=== PATIENT | female | born 1975 | race Caucasian/White ===

== ENCOUNTER 2018-08-28 13:43 | Emergency (ER) | payer MEDICAID ==
--- NOTE | 2018-08-28 14:06 | EDM.PDOC ---
ED HPI GENERAL MEDICAL PROBLEM - General Chief Complaint: Abdominal Pain Stated Complaint: SEVERE ABDOMINAL PAIN,HEADACHE Time Seen by Provider: 08/28/18 14:03 - History of Present Illness INITIAL COMMENTS - FREE TEXT/NARRATIVE: 42-year-old female presents emergency room with abdominal pain. This abdominal pain started about 5 days ago it is right lower abdomen may start in her flank. She has no appetite no significant nausea but some no vomiting she was constipated up to a few days ago but this resolved on its own. Patient is had frequent problems with urinary tract infections but nothing with flank pain. The patient's headache she noticed this morning that is fairly mild. 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 Right Abdomen Pain Score (Numeric/FACES): 8 - Related Data Allergies Allergy/AdvReac Type Severity Reaction Status Date / Time amoxicillin Allergy Anaphylactic Verified 08/28/18 13:56 Shock morphine Allergy Seizure Verified 08/28/18 13:56 Home Meds: Home Meds Acetaminophen/HYDROcodone [[place] 325-5 MG] 1 - 2 tab PO Q6H PRN #12 tablet 08/28 [Rx] Acetaminophen/HYDROcodone [[place] 325-5 MG] 1 tab PO BID PRN 08/28/18 [History] Aspirin [Halfprin] 81 mg PO DAILY 08/28/18 [History] Carisoprodol 350 mg PO DAILY 08/28/18 [History] Cyclobenzaprine [Flexeril] 10 mg PO TID PRN 08/28/18 [History] Diazepam [Valium] 5 mg PO TID PRN 08/28/18 [History] Ergocalciferol (Vitamin D2) [Vitamin D2] 50,000 unit PO WEEKLY 08/28/18 [History ] FLUoxetine HCl [Prozac] 20 mg PO DAILY 08/28/18 [History] Ferrous Sulfate 325 mg PO BID 08/28/18 [History] Ibuprofen 800 mg PO Q8H PRN 08/28/18 [History] Meloxicam 7.5 mg PO DAILY 08/28/18 [History] Ondansetron [Zofran Odt] 8 mg PO Q6H PRN #12 tab.rapdis 08/28/18 [Rx] Oxybutynin [Oxybutynin ER] 5 mg PO BID 08/28/18 [History] Pantoprazole Sodium [Protonix] 40 mg PO DAILY 08/28/18 [History] Prazosin HCl [Prazosin] 5 mg PO BEDTIME 08/28/18 [History] Spironolactone [Aldactone] 25 mg PO DAILY 08/28/18 [History] Tamsulosin HCl [Flomax] 1 cap PO DAILY 08/28/18 [History] Topiramate [Trokendi Xr] 200 mg PO DAILY 08/28/18 [History] atorvaSTATin [Lipitor] 40 mg PO BEDTIME 08/28/18 [History] ED ROS GENERAL - Review of Systems Review Of Systems: See Below Constitutional: Reports: No Symptoms. Denies: Fever, Chills HEENT: Reports: No Symptoms Respiratory: Reports: No Symptoms Cardiovascular: Reports: No Symptoms Endocrine: Reports: No Symptoms GI/Abdominal: Reports: Abdominal Pain, Anorexia, Constipation, Nausea. Denies: Diarrhea, Vomiting : Reports: Flank Pain. Denies: Discharge, Dysuria, Hematuria, Incontinence Musculoskeletal: Reports: No Symptoms Neurological: Reports: Headache Psychiatric: Reports: No Symptoms ED EXAM, GI/ABD - Physical Exam Exam: See Below Exam Limited By: No Limitations General Appearance: Alert, No Apparent Distress Head: Atraumatic, Normocephalic Neck: Normal Inspection, Supple, Non-Tender, Full Range of Motion. No: Lymphadenopathy (L), Lymphadenopathy (R) Respiratory/Chest: No Respiratory Distress, Lungs Clear, Normal Breath Sounds Cardiovascular: Normal Peripheral Pulses, Regular Rate, Rhythm, No Edema, No Murmur GI/Abdominal Exam: Normal Bowel Sounds, Soft, Other (The patient is significant right lower quadrant discomfort but it seems to be worsening suprapubic area pressing on the left side of her abdomen causes pain in the right lower quadrant and suprapubic area however she has no rigidity rebound or guarding the patient has significant obesity limits exam.) Back Exam: Normal Inspection, CVA Tenderness (R) (Patient has significant right CVA discomfort). No: CVA Tenderness (L) Extremities: Other (She is slow to move and has limited range of motion due to chronic pain issues she has a history of fibromyalgia this is nothing new for her.) Neurological: Alert, Oriented, Normal Cognition, Other (Cranial nerves II through XII grossly intact all muscle groups the upper lower extremities are equal and appropriate sometimes is a little slow to move things because of her chronic pain issues but does get the job done deep tendon reflexes are equal and appropriate the brachial radialis and patella tendons bilaterally cerebellar testing is normal cranial nerves II through XII are grossly intact.) Psychiatric: Normal Affect, Normal Mood Skin Exam: Warm, Dry, Intact Course - Vital Signs Last Recorded V/S: Last Vital Signs Temp 36.6 C 08/28/18 13:56 Pulse 92 08/28/18 13:56 Resp 16 08/28/18 13:56 BP 147/107 H 08/28/18 13:56 Pulse Ox 100 08/28/18 13:56 - Orders/Labs/Meds Orders: Active Orders 24 hr Category Date Time Status Abdomen Pelvis wo Cont [CT] Stat Exams 08/28/18 16:29 Taken Labs: Laboratory Tests 08/28/18 08/28/18 08/28/18 Range/Units 14:30 14:40 14:40 WBC 8.69 (3.98-10.04) K/mm3 RBC 4.50 (3.98-5.22) M/mm3 Hgb 13.2 (11.2-15.7) gm/L Hct 41.8 (34.1-44.9) % MCV 92.9 (79.4-94.8) fl MCH 29.3 (25.6-32.2) pg MCHC 31.6 L (32.2-35.5) g/dl RDW Std Deviation 48.2 H (36.4-46.3) fL Plt Count 191 (182-369) K/mm3 MPV 11.9 (9.4-12.3) fl Neutrophils % (Manual) 64 H (40-60) % Band Neutrophils % 2 (0-10) % Lymphocytes % (Manual) 26 (20-40) % Atypical Lymphs % 0 % Monocytes % (Manual) 7 (2-10) % Eosinophils % (Manual) 0 L (0.7-5.8) % Basophils % (Manual) 1 (0.1-1.2) Platelet Estimate Adequate RBC Morph Comment Normal Sodium 140 (136-145) mEq/L Potassium 4.0 (3.5-5.1) mEq/L Chloride 103 (98-107) mEq/L Carbon Dioxide 25 (21-32) mEq/L Anion Gap 16.0 H (5-15) BUN 17 (7-18) mg/dL Creatinine 0.9 (0.55-1.02) mg/dL Est Cr Clr Drug Dosing TNP Estimated GFR (MDRD) > 60 (>60) mL/min BUN/Creatinine Ratio 18.9 H (14-18) Glucose 95 (74-106) mg/dL Calcium 8.4 L (8.5-10.1) mg/dL Total Bilirubin 0.3 (0.2-1.0) mg/dL AST 18 (15-37) U/L ALT 28 (14-59) U/L Alkaline Phosphatase 58 (46-116) U/L Total Protein 6.8 (6.4-8.2) g/dl Albumin 3.6 (3.4-5.0) g/dl Globulin 3.2 gm/dL Albumin/Globulin Ratio 1.1 (1-2) Urine Color Yellow (Yellow) Urine Appearance Clear (Clear) Urine pH 6.0 (5.0-8.0) Ur Specific [place] 1.025 (1.005-1.030) Urine Protein Negative (Negative) Urine Glucose (UA) Negative (Negative) Urine Ketones Negative (Negative) Urine Occult Blood Negative (Negative) Urine Nitrite Negative (Negative) Urine Bilirubin Negative (Negative) Urine Urobilinogen 0.2 (0.2-1.0) Ur Leukocyte Esterase Negative (Negative) Urine RBC 0-5 (0-5) /hpf Urine WBC 0-5 (0-5) /hpf Ur Squamous Epith Cells 0-5 (0-5) /hpf Urine Bacteria Occasional (FEW) /hpf Urine Mucus Not seen (FEW) /hpf Meds: Medications Discontinued Medications Generic Name Dose Route Start Last Admin Trade Name Freq PRN Reason Stop Dose Admin Lactated Ringer's 1,000 mls @ 999 mls/hr 08/28/18 14:27 08/28/18 14:46 Ringers, Lactated IV 08/28/18 15:27 999 mls/hr .BOLUS ONE Administration Ketorolac Tromethamine 15 mg 08/28/18 16:28 08/28/18 16:32 Toradol IVPUSH 08/28/18 16:29 15 mg ONETIME ONE Administration Ondansetron HCl 4 mg 08/28/18 14:27 08/28/18 14:47 Zofran IVPUSH 08/28/18 14:28 4 mg ONETIME ONE Administration Ondansetron HCl 4 mg 08/28/18 16:28 08/28/18 16:32 Zofran IVPUSH 08/28/18 16:29 4 mg ONETIME ONE Administration - Re-Assessments/Exams Free Text/Narrative Re-Assessment/Exam: 08/28/18 17:46 Laboratory evaluation is done which is essentially unremarkable. Repeat abdominal exam still shows pain with her body habitus is somewhat difficult to exclude abdominal wall strain. She has no rebound or guarding. With this persistent right flank pain that is somewhat new for her I'm concerned about the possibility of a kidney stone albeit she does not have any hematuria and her urinalysis we went ahead and checked a CT to make sure she doesn't have a kidney stone chronic or acute stone without hematuria. This came back and showed prior no evidence of an appendix which goes with her history of having an appendicitis and appendectomy in the past gallbladder is missing. In no acute changes noted with the urinary tract no evidence of stone. I discussed my findings with the patient she's feeling low but better nausea is improved somewhat headaches improved somewhat with fluids and Zofran 08/28/18 17:55 The patient is use hydrocodone in the past does not currently have any home she sees Keenan has a couple remaining at home she will get prescriptions for a short course of both of these. Departure - Departure Time of Disposition: 17:49 Disposition: Home, Self-Care 01 Clinical Impression: Abdominal pain of unknown etiology - Discharge Information Prescriptions: Acetaminophen/HYDROcodone [[place] 325-5 MG] 1 - 2 tab PO Q6H PRN #12 tablet PRN Reason: Abdominal Pain Ondansetron [Zofran Odt] 8 mg PO Q6H PRN #12 tab.rapdis PRN Reason: Nausea/Vomiting Referrals: PCP,None [Primary Care Provider] - Forms: ED Department Discharge Additional Instructions: Return to emergency room with any questions problems worsening symptoms. Return in 12-24 hours if not improving. Clear liquid diet for the next 24 hours then slowly advance as tolerated. Take the medications as directed. Establish at the Hospital clinic for recheck early next week. [phone] - My Orders Last 24 Hours: My Active Orders 08/28/18 16:29 Abdomen Pelvis wo Cont [CT] Stat - Assessment/Plan Last 24 Hours: My Active Orders 08/28/18 16:29 Abdomen Pelvis wo Cont [CT] Stat
[2018-08-28] MEDS ORDERED: Ondansetron 4 MG/2 ML SDV IVPUSH ONE ×2 (14:27→16:28)
[2018-08-28] MEDS ORDERED: Lactated Ringers 1,000 ML IV ONE (14:27)
[2018-08-28] MEDS ORDERED: Ketorolac 15 MG/ML SDV IVPUSH ONE (16:28)
--- NOTE | 2018-08-29 09:04 | CT ---
CT abdomen and pelvis Technique: Multiple axial sections were obtained from above the dome of the diaphragm inferiorly through the pubic symphysis. Intravenous and oral contrast was not utilized. Study has been performed as a ureteral stone protocol. Findings: Kidneys show no abnormal calcifications. No ureteral dilatation or ureteral stone is seen. Appendix not visualized with certainty. Visualized lung bases are clear. Catheter is seen within the abdomen presumably due to ventriculoperitoneal shunt. Noncontrast appearance of the liver and spleen appear within normal limits. Small hiatal hernia is noted. Adrenal glands show no nodule. Pancreas is within normal limits. Surgical clips are seen from prior cholecystectomy. Aorta shows no aneurysm. No retroperitoneal adenopathy or mesenteric abnormalities are seen. No pelvic mass or adenopathy is seen. No free fluid or inflammatory change is seen. Bone window settings were reviewed which show no acute osseous abnormality. Slight degenerative change is scattered within the spine. Impression: 1. Incidental catheter presumably representing ventriculoperitoneal shunt. 2. No renal calculi, ureteral dilatation or ureteral stone is seen. 3. Other incidental findings. Nothing acute is appreciated on noncontrast CT study of the abdomen and pelvis performed as a ureteral stone protocol. Diagnostic code #2 I agree with preliminary report from [facility], finalized on 08/28/18, 6:10 PM Central Time
== END 2018-08-28 18:05 | disposition home or self-care (01) ==
LOC: JD.ED 13:43
DX: R10.31 Right lower quadrant pain (principal); Z88.1 Allergy status to other antibiotic agents; Z88.5 Allergy status to narcotic agent; Z79.899 Other long term (current) drug therapy
CPT/HCPCS: 36415; 74176; 80053; 81001; 85007; 85027; 96361; 96374; 96375; 96376; 99284; J1885; J2405; J7120

== ENCOUNTER 2018-09-08 22:41 | Emergency (ER) | payer MEDICAID ==
[2018-09-08] MEDS ORDERED: Sodium Chloride 0.9% 10 ML Syringe FLUSH PRN (23:32)
[2018-09-08] MEDS ORDERED: Metoclopramide 10 MG/2 ML SDV IVPUSH ONE (23:32)
[2018-09-08] MEDS ORDERED: HYDROmorphone 1 MG/ML Syringe IVPUSH ONE (23:32)
[2018-09-09] MEDS ORDERED: Dicyclomine 10 MG Cap PO ONE (00:41)
--- NOTE | 2018-09-09 00:46 | EDM.PDOC ---
ED HPI GENERAL MEDICAL PROBLEM - General Chief Complaint: Abdominal Pain Stated Complaint: LOWER RIGHT ABDOMINAL PAIN SWELLING AND SICK Time Seen by Provider: 09/08/18 23:14 Source of Information: Reports: Patient, RN Notes Reviewed - History of Present Illness INITIAL COMMENTS - FREE TEXT/NARRATIVE: 42-year-old female comes in with abdominal pain. Having difficulty with abdominal pain for the last 10-14 days. She did see one of our providers here in the ED about 9 or 10 days ago, had lab work along with abdominal CT done at that time which all came back relatively normal. She states around that time she did have about "3 days of vomiting. After that she did start having some watery diarrhea and now is having loose stools. She had been on clear liquids but now is eating more regularly. No recent fever or chills. Both her gallbladder and appendix have previously been surgically removed. Right Abdomen Pain Score (Numeric/FACES): 8 - Related Data Allergies Allergy/AdvReac Type Severity Reaction Status Date / Time amoxicillin Allergy Anaphylactic Verified 09/08/18 22:54 Shock morphine Allergy Seizure Verified 09/08/18 22:54 Home Meds: Home Meds Acetaminophen/HYDROcodone [[place] 325-5 MG] 1 - 2 tab PO Q6H PRN #12 tablet 08/28 [Rx] Acetaminophen/HYDROcodone [[place] 325-5 MG] 1 tab PO BID PRN 08/28/18 [History] Aspirin [Halfprin] 81 mg PO DAILY 08/28/18 [History] Carisoprodol 350 mg PO DAILY 08/28/18 [History] Cyclobenzaprine [Flexeril] 10 mg PO TID PRN 08/28/18 [History] Diazepam [Valium] 5 mg PO TID PRN 08/28/18 [History] Ergocalciferol (Vitamin D2) [Vitamin D2] 50,000 unit PO WEEKLY 08/28/18 [History ] FLUoxetine HCl [Prozac] 20 mg PO DAILY 08/28/18 [History] Ferrous Sulfate 325 mg PO BID 08/28/18 [History] Ibuprofen 800 mg PO Q8H PRN 08/28/18 [History] Meloxicam 7.5 mg PO DAILY 08/28/18 [History] Ondansetron [Zofran Odt] 8 mg PO Q6H PRN #12 tab.rapdis 08/28/18 [Rx] Oxybutynin [Oxybutynin ER] 5 mg PO BID 08/28/18 [History] Pantoprazole Sodium [Protonix] 40 mg PO DAILY 08/28/18 [History] Prazosin HCl [Prazosin] 5 mg PO BEDTIME 08/28/18 [History] Spironolactone [Aldactone] 25 mg PO DAILY 08/28/18 [History] Tamsulosin HCl [Flomax] 1 cap PO DAILY 08/28/18 [History] Topiramate [Trokendi Xr] 200 mg PO DAILY 08/28/18 [History] atorvaSTATin [Lipitor] 40 mg PO BEDTIME 08/28/18 [History] Dicyclomine [Bentyl] 20 mg PO TID #14 tab 09/09/18 [Rx] Past Medical History Other Cardiovascular History: patient states she has "heart problems" her heart rate changes and she has had two angiograms, she states she has some blockage. 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 Psychiatric History: Reports: Bipolar Endocrine/Metabolic History: Reports: Obesity/BMI 30+ Hematologic History: Reports: Anemia - Past Surgical History HEENT Surgical History: Reports: Adenoidectomy, Oral Surgery, Tonsillectomy Other HEENT Surgeries/Procedures: Upper and lower dentures GI Surgical History: Reports: Appendectomy, Cholecystectomy, Colonoscopy, EGD Female Surgical History: Reports: Section Musculoskeletal Surgical History: Reports: Other (See Below) Other Musculoskeletal Surgeries/Procedures:: bunionectomy, heel cord lengthen Social & Family History - Tobacco Use Smoking Status *Q: Current Every Day Smoker Years of Tobacco use: 34 Packs/Tins Daily: 0.5 - Recreational Drug Use Recreational Drug Use: No ED ROS GENERAL - Review of Systems Review Of Systems: See Below Constitutional: Denies: Fever, Chills HEENT: Reports: No Symptoms Respiratory: Denies: Shortness of Breath Cardiovascular: Denies: Chest Pain GI/Abdominal: Reports: Abdominal Pain, Diarrhea, Nausea, Vomiting. Denies: Hematochezia, Melena Musculoskeletal: Denies: Back Pain Skin: Reports: No Symptoms Neurological: Reports: No Symptoms ED EXAM, GI/ABD - Physical Exam Exam: See Below General Appearance: Alert, Mild Distress Eyes: Bilateral: Normal Appearance Throat/Mouth: Normal Inspection Head: Atraumatic Neck: Supple Respiratory/Chest: No Respiratory Distress, Lungs Clear Cardiovascular: Regular Rate, Rhythm GI/Abdominal Exam: Tender (Right abdomen, mid abdomen and right mid abdomen, left abdomen nontender) Back Exam: No: CVA Tenderness (L), CVA Tenderness (R) Neurological: Alert, Oriented, No Motor/Sensory Deficits Course - Vital Signs Last Recorded V/S: Last Vital Signs Temp 97.2 F 09/08/18 22:55 Pulse 86 09/08/18 22:55 Resp 18 09/08/18 22:55 BP 139/82 09/08/18 22:55 Pulse Ox 98 09/08/18 22:55 - Orders/Labs/Meds Orders: Active Orders 24 hr Category Date Time Status Peripheral IV Care [RC] . DIRECTED Care 09/08/18 23:32 Active Sodium Chloride 0.9% [Saline Flush] Med 09/08/18 23:32 Active 10 ml FLUSH ASDIRECTED PRN Peripheral IV Insertion Adult [OM.PC] Stat Oth 09/08/18 23:31 Ordered Medication Orders Sodium Chloride (Saline Flush) 10 ml FLUSH ASDIRECTED PRN PRN Reason: Keep Vein Open Last Admin: 09/08/18 23:48 Dose: 10 ml Labs: Laboratory Tests 09/08/18 09/08/18 Range/Units 23:40 23:40 WBC 7.63 (3.98-10.04) K/mm3 RBC 4.59 (3.98-5.22) M/mm3 Hgb 13.7 (11.2-15.7) gm/L Hct 42.5 (34.1-44.9) % MCV 92.6 (79.4-94.8) fl MCH 29.8 (25.6-32.2) pg MCHC 32.2 (32.2-35.5) g/dl RDW Std Deviation 49.1 H (36.4-46.3) fL Plt Count 189 (182-369) K/mm3 MPV 12.1 (9.4-12.3) fl Neut % (Auto) 55.4 (34.0-71.1) % Lymph % (Auto) 31.8 (19.3-51.7) % [place] % (Auto) 11.3 (4.7-12.5) % Eos % (Auto) 1.0 (0.7-5.8) Baso % (Auto) 0.4 (0.1-1.2) % Neut # (Auto) 4.22 (1.56-6.13) K/mm3 Lymph # (Auto) 2.43 (1.18-3.74) K/mm3 [place] # (Auto) 0.86 H (0.24-0.36) K/mm3 Eos # (Auto) 0.08 (0.04-0.36) K/mm3 Baso # (Auto) 0.03 (0.01-0.08) K/mm3 Sodium 141 (136-145) mEq/L Potassium 3.7 (3.5-5.1) mEq/L Chloride 106 (98-107) mEq/L Carbon Dioxide 24 (21-32) mEq/L Anion Gap 14.7 (5-15) BUN 14 (7-18) mg/dL Creatinine 0.9 (0.55-1.02) mg/dL Est Cr Clr Drug Dosing 63.75 mL/min Estimated GFR (MDRD) > 60 (>60) mL/min BUN/Creatinine Ratio 15.6 (14-18) Glucose 101 (74-106) mg/dL Calcium 9.0 (8.5-10.1) mg/dL Total Bilirubin 0.3 (0.2-1.0) mg/dL AST 14 L (15-37) U/L ALT 25 (14-59) U/L Alkaline Phosphatase 63 (46-116) U/L Total Protein 6.8 (6.4-8.2) g/dl Albumin 3.9 (3.4-5.0) g/dl Globulin 2.9 gm/dL Albumin/Globulin Ratio 1.3 (1-2) Lipase 81 (73-393) U/L Meds: Medications Generic Name Dose Route Start Last Admin Trade Name Freq PRN Reason Stop Dose Admin Sodium Chloride 10 ml 09/08/18 23:32 09/08/18 23:48 Saline Flush FLUSH 10 ml ASDIRECTED PRN Administration Keep Vein Open Discontinued Medications Generic Name Dose Route Start Last Admin Trade Name [place] PRN Reason Stop Dose Admin Dicyclomine HCl 20 mg 09/09/18 00:41 09/09/18 00:58 Bentyl PO 09/09/18 00:42 20 mg ONETIME ONE Administration Hydromorphone HCl 1 mg 09/08/18 23:32 09/08/18 23:47 Dilaudid IVPUSH 09/08/18 23:33 1 mg ONETIME ONE Administration Metoclopramide HCl 10 mg 09/08/18 23:32 09/08/18 23:45 Reglan IVPUSH 09/08/18 23:33 10 mg ONETIME ONE Administration - Re-Assessments/Exams Free Text/Narrative Re-Assessment/Exam: 09/09/18 01:17 White blood count, chemistries including lipase normal. She is having about 4 loose stools a day she is not obstructed, and not going to do x-rays at this time or repeat abdominal CT which she just had about 9 days ago. I am suggesting she go on clear liquids at least until later today, start probiotic twice daily and also Bentyl up to 3 times daily as needed. She did get fairly good relief of discomfort after Dilaudid 1 mg IV, Zofran 4 mg IV. Departure - Departure Time of Disposition: 00:41 Disposition: Home, Self-Care 01 Condition: Fair Clinical Impression: Abdominal pain Qualifiers: Abdominal location: generalized Qualified Code(s): R10.84 - Generalized abdominal pain Diarrhea Qualifiers: Diarrhea type: unspecified type Qualified Code(s): R19.7 - Diarrhea, unspecified - Discharge Information Prescriptions: Dicyclomine [Bentyl] 20 mg PO TID #14 tab Instructions: Diarrhea, Adult, Abdominal Pain, Adult, [id number] Referrals: PCP,None [Primary Care Provider] - Forms: ED Department Discharge Additional Instructions: Clear liquids until this afternoon, than very careful bland diet as tolerated. Bentyl 20 mg 3 times daily for the next 2 days and thereafter as needed for abdominal pain or cramping, begin probiotic and take that twice daily for the next week and thereafter as needed, follow-up clinic as soon as you can make arrangements for that, return to ED as needed if symptoms worsening in any way. - My Orders Last 24 Hours: My Active Orders 09/08/18 23:31 Peripheral IV Insertion Adult [OM.PC] Stat 09/08/18 23:32 Peripheral IV Care [RC] . DIRECTED Sodium Chloride 0.9% [Saline Flush] 10 ml FLUSH ASDIRECTED PRN - Assessment/Plan Last 24 Hours: My Active Orders 09/08/18 23:31 Peripheral IV Insertion Adult [OM.PC] Stat 09/08/18 23:32 Peripheral IV Care [RC] . DIRECTED Sodium Chloride 0.9% [Saline Flush] 10 ml FLUSH ASDIRECTED PRN
== END 2018-09-09 01:00 | disposition home or self-care (01) ==
LOC: JD.ED 22:41
DX: R19.7 Diarrhea, unspecified (principal); R10.84 Generalized abdominal pain; E66.9 Obesity, unspecified; F17.210 Nicotine dependence, cigarettes, uncomplicated; Z88.1 Allergy status to other antibiotic agents; Z88.5 Allergy status to narcotic agent; Z79.82 Long term (current) use of aspirin; Z79.899 Other long term (current) drug therapy; Z98.890 Other specified postprocedural states; Z90.49 Acquired absence of other specified parts of digestive tract
CPT/HCPCS: 36415; 80053; 83690; 85025; 96374; 96375; 99284; A9270; J1170; J2765